=== PATIENT | male | born 1975 | race Caucasian/White ===

== ENCOUNTER 2019-06-11 19:17 | Inpatient (IN) | payer BC ==
[2019-06-11] MEDS ORDERED: Morphine 10 MG/ML VIAL (1 ml) IV ONE (19:29)
--- NOTE | 2019-06-11 19:38 | ED ---
Abdominal Pain/Male - HPI Summary HPI Summary: Patient is a 44 y/o M presenting to the ED via EMS for a chief complaint of diffuse abdominal pain. Patient is a transfer from [facility] for a peritoneal abscess. At [facility], the patient had an abdomen CT that showed diverticulitis with a peritoneal abscess. On triage, patient rates the abdominal pain as 10/10 in severity. Per EMS, patient was given morphine and 100 mcg of fentanyl. PSHx of abdominal surgery is denied. He does note a colonoscopy screening in the past for a PMHx of colitis and diverticulitis. On 06/09/19, patient was given ciprofloxacin for the abscess without relief of his abdominal pain. Patient denies fever or headache. He denies any aggravating factors. Patient does report positive sick contact with stomach bugs. - History of Current Complaint Chief Complaint: EDAbdPain Stated Complaint: ABSCESS/DIVTIC PER EMS Time Seen by Provider: 06/11/19 19:24 Hx Obtained From: Patient, EMS Onset/Duration: Sudden Onset, Still Present Timing: Constant Severity Initially: Severe Severity Currently: Severe Pain Intensity: 10 Pain Scale Used: 0-10 Numeric Location: Diffuse Radiates: No Aggravating Factor(s): Nothing Alleviating Factor(s): Nothing, Other: - No relief with ciprofloxacin Associated Signs And Symptoms: Positive: Other - Negative headache. Negative: Fever - Allergies/Home Medications Allergies/Adverse Reactions: Allergies Allergy/AdvReac Type Severity Reaction Status Date / Time erythromycin base Allergy GI Upset Verified 06/02/19 10:25 ivabradine Allergy Dry Eyes Verified 06/02/19 10:25 Tetracyclines Allergy GI Upset Verified 06/02/19 10:25 contrast dye Allergy Severe HOT/RED Uncoded 12/05/18 12:40 AND ITCHING PMH/Surg Hx/FS Hx/Imm Hx Previously Healthy: Yes Endocrine/Hematology History: Denies: Hx Diabetes Cardiovascular History: Reports: Hx Hypertension - MEDICATED Denies: Hx Pacemaker/ICD Respiratory History: Reports: Hx Seasonal Allergies GI History: Reports: Hx Diverticulosis, Other GI Disorders - Colitis History: Denies: Hx Renal Disease Musculoskeletal History: Reports: Hx Back Problems, Hx Orthopedic Injury - R. knee & L.shoulder, Other Musculoskeletal History - Fx L5-S1 Sensory History: Denies: Hx Legally Blind, Hx Deafness, Hx Hearing Aid Opthamlomology History: Denies: Hx Legally Blind EENT History: Denies: Hx Deafness Neurological History: Reports: Hx Headaches, Hx Migraine, Other Neuro Impairments/Disorders - PAIN CLINIC PT Psychiatric History: Reports: Hx Anxiety Denies: Hx Panic Disorder - Surgical History Surgical History: Yes Surgery Procedure, Year, and Place: R. knee surgery and follow-up I&D at [facility] 2003. Lt shoulder Hx Anesthesia Reactions: No Infectious Disease History: No Infectious Disease History: Denies: Traveled Outside the [place] in Last 30 Days - Social History Occupation: Employed Full-time Lives: With Family Alcohol Use: Occasionally Alcohol Amount: 2 Hx Substance Use: No Substance Use Type: Reports: None Hx Tobacco Use: Yes Smoking Status (MU): Former Smoker Type: Smokeless Tobacco Amount Used/How Often: 1 can a day Length of Time of Smoking/Using Tobacco: 15 Review of Systems Negative: Fever Positive: Abdominal Pain - Diffuse Negative: Headache All Other Systems Reviewed And Are Negative: Yes Physical Exam - Summary Physical Exam Summary: Appearance: Well-appearing, Well-nourished, lying in bed comfortably Skin: Warm, dry, no obvious rash Eyes: sclera anicteric, no conjunctival pallor ENT: mucous membranes moist, pharynx appears normal Neck: Supple, nontender Respiratory: Clear to auscultation, no signs of respiratory distress Cardiovascular: Normal S1, S2. No murmurs. Normal distal pulses in tibial and radial bilaterally. Abdomen: Soft, normal active bowel sounds present. Diffuse severe abdominal tenderness. Musculoskeletal: Normal, Strength/ROM Intact Neurological: A&Ox3, awake and alert, mentation is normal, speech is fluent and appropriate Psychiatric: affect is normal, does not appear anxious or depressed Triage Information Reviewed: Yes Vital Signs On Initial Exam: Initial Vitals Temp Pulse Resp BP Pulse Ox 100.5 F 86 22 154/99 98 06/11/19 19:25 06/11/19 19:25 06/11/19 19:25 06/11/19 19:25 06/11/19 19:25 Vital Signs Reviewed: Yes Procedures - Sedation Patient Received Moderate/Deep Sedation with Procedure: No Diagnostics - Vital Signs Vital Signs Temp Pulse Resp BP Pulse Ox 06/11/19 19:25 100.5 F 86 22 154/99 98 - Laboratory Result Diagrams: 06/12/19 04:39 06/12/19 04:39 Lab Statement: Any lab studies that have been ordered have been reviewed, and results considered in the medical decision making process. Abdominal Pain Male Course/Dx - Course Course Of Treatment: Patient is a 44 y/o M presenting to the ED via EMS for a chief complaint of diffuse abdominal pain. Patient is a transfer from [facility] for a peritoneal abscess. At [facility], the patient had an abdomen CT that showed diverticulitis with a peritoneal abscess. On triage, patient rates the abdominal pain as 10/10 in severity. Per EMS, patient was given morphine and 100 mcg of fentanyl. PSHx of abdominal surgery is denied. He does note a colonoscopy screening in the past for a PMHx of colitis and diverticulitis. On 06/09/19, patient was given ciprofloxacin for the abscess without relief of his abdominal pain. Patient denies fever or headache. He denies any aggravating factors. Patient does report positive sick contact with stomach bugs.. On exam, diffuse severe abdominal tenderness. In the ED course, patient was given morphine 10 mg IV. At 20:34, Dr. Temo Preston recommends admission to [facility]. At 21:39, Dr. Alvarado agrees to admit the patient to [facility]. Patient will be admitted to [facility] with a diagnosis of diverticulitis. - Diagnoses Provider Diagnoses: Diverticulitis - Provider Notifications Discussed Care Of Patient With: Temo Preston - At 20:34, Dr. Temo Preston recommends admission to [facility]. At 21:39, Dr. Alvarado agrees to admit the patient to [facility]. Time Discussed With Above Provider: 20:34 Instructed by Provider To: Admit As Inpatient Discharge ED - Sign-Out/Discharge Documenting (check all that apply): Patient Departure - Admit - Discharge Plan Condition: Stable Disposition: ADMITTED TO [facility] - Billing Disposition and Condition Condition: STABLE Disposition: Admitted to [facility] - Attestation Statements Document Initiated by Deidre: Yes Documenting Anibalibe: Alba Elizabeth Provider For Whom Deidre is Documenting (Include Credential): Winston Thayer MD Scribe Attestation: Alba Allen scribed for Winston Thayer MD on 06/12/19 at 0615. Scribe Documentation Reviewed: Yes Provider Attestation: The documentation as recorded by the Alba goode accurately reflects the service I personally performed and the decisions made by me, Winston Thayer MD Status of Deidre Document: Viewed
--- OUTSIDE RECORDS SUMMARY | 2019-06-11 20:02 | XMS REPORT | Continuity of Care Document ---
:1975 External Reference #:[id number] Author Name Yuliana Mcneill MD (transmitted by agent of provider Rubi Houser ) Address [address] [place] [address] Care Team Providers Name Role Phone Ross Valente MD - Family Medicine Care Team Information Activity Assistant [phone] Problems Active Problems Provider Date Sciatica Yuliana Mcneill MD Onset: 10/12/2017 Spondylolisthesis L5/S1 level Yuliana Mcneill MD Onset: 04/30/2018 Social History Type Date Description Comments Sex Unknown ETOH Use Occasionally consumes alcohol Tobacco Use Start: Unknown Chews tobacco Recreational Drug Use Denies Drug Use Tobacco Use Start: Unknown Patient has never smoked Smoking Status Reviewed: 05/21/19 Patient has never smoked Exercise Type/Frequency Exercises regularly Allergies, Adverse Reactions, Alerts Active Allergies Reaction Severity Comments Date Erythromycin GI Upset 09/21/2017 Iodinated Diagnostic Agents Rash 09/21/2017 IV Dye 10/12/2017 Medications Active Medications SIG Qnty Indications Ordering Date Provider Atenolol 1 by mouth Unknown 50mg Tablets every day Cyclobenzaprine HCL 1 tablet by Unknown 10mg mouth q8 hours Tablets as needed muscle spasms Xanax 1/2 to 1 tab as Unknown 0.5mg Tablets needed for severe anxiety attack Oxycodone HCL take one tablet Unknown 15mg Tablets by mouth every 4 hours as needed maximum daily dose = four tablets Lyrica 1 by mouth 60caps Ross Valetne MD 50mg Capsules twice a day Naproxen 1 tablet with Unknown 500mg Tablets food by mouth twice a day as needed Immunizations CPT Code Status Date Vaccine Lot # [id number] Given 01/06/1998 DT Vaccine Younger Than 7 Yrs Vital Signs Date Vital Result Comment 05/21/2019 2:09pm Height 71 inches 5'11" Weight 217.00 lb Heart Rate 86 /min BP Systolic 176 mmHg BP Diastolic 90 mmHg BMI (Body Mass Index) 30.3 kg/m2 05/14/2019 10:37am Heart Rate 84 /min Respiratory Rate 16 /min Body Temperature 98.3 F Results Test Acquired Date Facility Test Result H/L Range Note Surgical 04/30/2019 [facility] Surgical SEE RESULT [address] [address] [phone] PDFReport [id number] <SEE NOTE> Laboratory test 04/14/2019 [facility] Surgical SEE RESULT [address] [place] [address] [phone] 1 SEE RESULT BELOW Name: KAYLENEBRODY : [address]: Pramod Rizo MD Acct: [id number] Unit: [id number] AGE: 44 Location: [facility] Re04/30/19 SEX: M Status: REG REF SPEC: [id number] MARITZA: 04/30/[address] [facility] [address]: Pramod Rizo MD REQ: [id number] RECD: 04/30/19 STATUS: SOUT _ ORDERED: LEVEL 3/2 COMMENTS: [id number] FINAL DIAGNOSIS 1. Soft tissue, medial upper abdomen, excision: -- Lobulated adipose tissue compatible with lipoma. 2. Soft tissue mass, left upper abdomen, excision: -- Lobulated adipose tissue compatible with lipoma. CLINICAL HISTORY No history given GROSS DESCRIPTION 1. The specimen is received in formalin labeled, Medial Upper Abdominal Mass, and consists of a 2.2 x 1.9 x 0.9 cm yellow ovoid smooth to nodular well encapsulated adipose tissue fragment. The cut surface is glistening arreola-yellow and lobulated. The specimen is inked, serially sectioned and apprenticeship representative sections are submitted in one cassette. 2. The specimen is received in formalin labeled, Left Upper Abdominal Mass , and consists of a 2.8 by up to 2.2 x 0.7 cm irregular smooth well encapsulated adipose tissue fragment. The cut surface is glistening yellow-pink. The specimen is inked, serially sectioned and apprenticeship representative sections are submitted in one cassette. Signed by and Reported on: Jhonny Robertson MD 1428 END OF REPORT DEPARTMENT OF PATHOLOGY, [address] [place] [address] Jhonny Robertson M.D. Director [facility] # [id number] 2 SEE RESULT BELOW Name: BRODY MAURICE : [address]: Pramod Rizo MD Acct: [id number] Unit: [id number] AGE: 44 Location: [facility] Re04/14/19 SEX: M Status: REG REF SPEC: [id number] MARITZA: 04/14/[address] [facility] [address]: Pramod Rizo MD REQ: [id number] RECD: 04/14/19 STATUS: SOUT _ ORDERED: LEVEL 3/2 COMMENTS: [id number] FINAL DIAGNOSIS 1. Left arm, excision: -- Angiolipoma. 2. Right side, excision: -- Angiolipoma. CLINICAL HISTORY No history given GROSS DESCRIPTION 1. The specimen is received in formalin labeled, Left Arm Mass, and consists of a 2.1 x 1.8 x 0.6 cm yellow-brown ovoid slightly lobulated well encapsulated adipose tissue fragment. The cut surface is arreola-yellow and lobulated. The specimen is inked, serially sectioned and apprenticeship representative sections are submitted in one cassette. 2. The specimen is received in formalin labeled, Right Side Mass, and consists of a 2.3 x 1.2 x 0.8 cm yellow ovoid focally lobulated well encapsulated adipose tissue fragment. The cut surface is arreola-yellow and lobulated. The specimen is inked, serially sectioned and apprenticeship representative sections are submitted in one cassette. Signed by and Reported on: Marina Santos MD 04/16/19 1352 END OF REPORT DEPARTMENT OF PATHOLOGY, [address] [place] [address] Jhonny Robertson M.D. Director [facility] # [id number] Procedures Date Code Description Status 04/30/2019 31059 Excision Tumor, Soft Tissue, Abdominal Wall, Subcutaneous, Completed < 3 CM 04/30/2019 05877 Excision Tumor, Soft Tissue, Abdominal Wall, Subcutaneous, Completed < 3 CM 04/14/2019 29046 Excision Tumor Soft Tissue Forearm/Wrist Subcutaneous < 3 Completed CM 04/14/2019 49602 excision, soft tissue of back, or flank Completed Medical Devices Description No Information Available Encounters Type Date Location Provider Dx Diagnosis Office Visit [facility] Pr[facility]od [facility]izo, D17.1 Benign lipomatous 1:00p Of Arron HOLLIS, FACS neoplasm of skin, subcu of trunk D17.22 Benign lipomatous neoplasm of skin, subcu of left arm K57.92 Dvtrcli of intest, part unsp, w/o perf or abscess w/o bleed Assessments Date Code Description Provider 05/21/2019 M43.17 Spondylolisthesis, lumbosacral region Yuliana Mcneill MD 05/21/2019 M51.17 Intervertebral disc disorders with Yuliana Mcneill MD radiculopathy, lumbosacral region 05/14/2019 D17.1 Benign lipomatous neoplasm of skin and MICHELLE Cerrato subcutaneous tissue of trunk 04/30/2019 D17.1 Benign lipomatous neoplasm of skin and Pramod Rizo MD, FACS subcutaneous tissue of trunk 04/14/2019 D17.1 Benign lipomatous neoplasm of skin and Pramod Rizo MD, FACS subcutaneous tissue of trunk 04/14/2019 D17.22 Benign lipomatous neoplasm of skin and Pramod Rizo MD, FACS subcutaneous tissue of left arm 03/28/2019 D17.1 Benign lipomatous neoplasm of skin and Pramod Rizo MD, FACS subcutaneous tissue of trunk 03/28/2019 D17.22 Benign lipomatous neoplasm of skin and Pramod Rizo MD, FACS subcutaneous tissue of left arm 03/28/2019 K57.92 Diverticulitis of intestine, part Pramod Rizo MD, FACS unspecified, without perforation or abscess without bleeding Plan of Treatment 05/14/2019 - Brad Alexandre, PAD17.1 Benign lipomatous neoplasm of skin and subcutaneous tissue of trunkFollow up:As needed Functional Status Description No Information Available Mental Status Description No Information Available Referrals Description No Information Available
--- OUTSIDE RECORDS SUMMARY | 2019-06-11 20:02 | XMS REPORT | Continuity of Care Document ---
:1975 External Reference #:[id number] Author Name Pramod Rizo MD, FACS (transmitted by agent of provider Tori Hall) Address [address] [place] [address] Care Team Providers Name Role Phone Ross Valente MD - Family Medicine Care Team Information Head Of Precision Targeting [phone] Problems Active Problems Provider Date Sciatica Yuliana Mcneill MD Onset: 10/12/2017 Spondylolisthesis L5/S1 level Yuliana Mcneill MD Onset: 04/30/2018 Social History Type Date Description Comments Sex Unknown ETOH Use Occasionally consumes alcohol Tobacco Use Start: Unknown Chews tobacco Recreational Drug Use Denies Drug Use Tobacco Use Start: Unknown Patient has never smoked Smoking Status Reviewed: 04/14/19 Patient has never smoked Exercise Type/Frequency Exercises [...] tablets Lyrica 1 by mouth 60caps Ross Valente MD 50mg Capsules twice a day Naproxen 1 tablet with Unknown 500mg Tablets food by mouth twice a day as needed Immunizations CPT Code Status Date Vaccine Lot # [id number] Given 01/06/1998 DT Vaccine Younger Than 7 Yrs Vital Signs Date Vital Result Comment 04/14/2019 9:48am Heart Rate 80 /min BP Systolic 152 mmHg BP Diastolic 90 mmHg Respiratory Rate 16 /min Body Temperature 98.5 F 03/28/2019 1:06pm Height 71 inches 5'11" Weight 198.00 lb Heart Rate 90 /min BP Systolic Sitting 140 mmHg BP Diastolic Sitting 92 mmHg Respiratory Rate 16 /min Body Temperature 101.0 F BMI (Body Mass Index) 27.6 kg/m2 Results Description No Information Available Procedures Description No Information Available Medical Devices Description No Information Available Encounters Type Date Location Provider Dx Diagnosis Office Visit 03/[facility]2019 [facility] Pram[facility], D17.1 Benign lipomatous 1:00p Of [facility] , FACS neoplasm of skin, subcu of trunk D17.22 Benign lipomatous neoplasm of skin, subcu of left arm K57.92 Dvtrcli of intest, part unsp, w/o perf or abscess w/o bleed Assessments Date Code Description Provider 04/14/2019 D17.1 Benign lipomatous neoplasm of skin [...] or abscess without bleeding Plan of Treatment Future Appointment(s):04/28/2019 10:00 am - Pramod Rizo MD, FACS at [facility]04/14/2019 - Pramod Rizo MD, FACSD17.1 Benign lipomatous neoplasm of skin and subcutaneous tissue of trunkFollow up:2 bskjtX36.22 Benign lipomatous neoplasm of skin and subcutaneous tissue of left arm Functional Status Description No Information Available Mental Status Description No Information Available Referrals Description No Information Available
--- OUTSIDE RECORDS SUMMARY | 2019-06-11 20:02 | XMS REPORT | Continuity of Care Document ---
:1975 External Reference #:[id number] Author Name Cody Villatoro MD Address [address] [place] [address] Care Team Providers Name Role Phone Fracisco Araiza - Urology Care Team Information Table Assembler [phone] Ross Valente - Family Medicine Care Team Information Table Assembler Problems Active Problems Provider Date Arthralgia of the lower leg Ross Valente M.D. Onset: 01/17/2007 Anxiety state Ross Valente M.D. Onset: 01/17/2007 Diverticulitis Ross Valente M.D. Onset: 03/11/2019 Lumbar radiculopathy Ross Valente M.D. Onset: 09/13/2018 Low back pain Ross Valente M.D. Onset: 09/13/2018 Pain in calf Ross Valente M.D. Onset: 05/04/2017 Sciatica Ross Valente M.D. Onset: 04/10/2017 Liver function tests abnormal Ross Valente M.D. Onset: 12/12/2011 Acute pharyngitis Ross Valente M.D. Onset: 07/24/2011 Acute sinusitis Ross Valente M.D. Onset: 07/24/2011 Hyperlipidemia Ross Valente M.D. Onset: 02/23/2011 Benign essential hypertension Ross Valente M.D. Onset: 02/23/2011 Social History Type Date Description Comments Sex Unknown Tobacco Use Start: Unknown Occ Chews Tobacco Tobacco Use Start: Unknown Nonsmoker Smoking Status Reviewed: 08/28/17 Nonsmoker ETOH Use Rare Tobacco Use Start: Unknown Patient has never smoked Allergies, Adverse Reactions, Alerts Active Allergies Reaction Severity Comments Date Erythromycin 05/10/2006 IV Contrast Urticaria 02/14/2007 Tetracycline 03/06/2019 Cipro rash 03/06/2019 Medications Active Medications SIG Qnty Indications Ordering Provider Date Doxycycline Hyclate two by mouth one 2caps S30.861A Cody TMynor 05/08/2019 time for tick MD [place] 100mg Capsules bite. Oxycodone HCL ER 1 by mouth every 60tabs M54.5 Ross Valente, 09/13/2018 20mg 12 hours for M.D. Tab ER 12H Abuse-Det pain as needed Lyrica 1 three times a 90caps M54.32 Ross Valente, 04/11/2018 100mg Capsules day as needed M.D. for sciatic pain Naproxen take one tablet 60tabs L03.113 Gill Wiley, [facility] 11/28/2017 500mg Tablets by mouth every 12 hours with food Atenolol take 1/2 tablet 15tabs I10 Ross Valente, 08/03/2017 50mg Tablets by mouth once M.D. daily Xanax 1/2 -1 by mouth 60tabs Ross Valente, 02/03/2013 0.5mg Tablets twice a day as M.D. needed for anxiety Oxycodone HCL 1-2 by mouth 120tabs Ross Valente, 12/12/2011 15mg twice a day as M.D. Tablets needed History Medications Amoxicillin/Clavulanate 1 twice a day 20tabs Ross Valente, 03/06/2019 - Potassium w/ food. M.D. 05/08/2019 875-125mg Tablets Medications Administered in Office Medication SIG Qnty Indications Ordering Provider Date Injection Subcutaneous Or Ross Valente M.D. 02/14/2007 Intramuscular Injection Injection Subcutaneous Or Ross Valente M.D. 10/11/2006 Intramuscular Injection Immunizations CPT Code Status Date Vaccine Lot # [id number] Given 04/17/2019 Influenza Vac, Quadriv[place], [place] [id number] Given 04/10/2017 Tdap Tetanus, W Pertussis [id number] Given 04/10/2017 Influenza Vac, Quadrivalent, Slit Virus, Im [id number] Given 07/11/2016 Influenza Vac, Quadrivalent, Slit Virus, Im [id number] Given 04/13/2015 Influenza Vac, [place], [place] [id number] Given 05/01/2014 DO Not Use Split Influenza Virus Vaccine Vital Signs Date Vital Result Comment 05/08/2019 11:02am BP Systolic 110 mmHg BP Diastolic 70 mmHg Heart Rate 66 /min Body Temperature 97.7 F Respiratory Rate 17 /min Weight 200.00 lb 03/11/2019 5:14pm BP Systolic 120 mmHg BP Diastolic 80 mmHg Heart Rate 64 /min Body Temperature 98.4 F Respiratory Rate 16 /min Weight 205.00 lb Results Description No Information Available Procedures Date Code Description Status 12/24/2014 37175505 Colonoscopy Completed Medical Devices Description No Information Available Encounters Type Date Location Provider Dx Diagnosis Office Visit 03/11/2019 Main Office Ross Valente, Ashly7.92 Dvtrcli of intest, 5:00p M.D. part unsp, w/o perf or abscess w/o bleed M54.5 Low back pain Office Visit 12/10/2018 11:00a Main Office Ross Valente M.D. M54.5 Low back pain M54.16 Radiculopathy, lumbar region M25.561 Pain in right knee F41.1 Generalized anxiety disorder Assessments Date Code Description Provider 05/08/2019 S30.861A Insect bite (nonvenomous) of abdominal Cody MD kary Snyder, initial encounter 03/11/2019 K57.92 Diverticulitis Ross Valente M.D. 03/11/2019 M54.5 Low back pain Ross Valente M.D. 12/10/2018 M54.5 Low back pain Ross Valente M.D. 12/10/2018 M54.16 Radiculopathy, lumbar region Ross Valente M.D. 12/10/2018 M25.561 Pain in right knee Ross Valente M.D. 12/10/2018 F41.1 Generalized anxiety disorder Ross Valente M.D. Plan of Treatment Future Appointment(s):06/13/2019 10:20 am - Ross Valente M.D. at Main [facility]405/08/2019 - Cody Villatoro, MDS30.861A Insect bite (nonvenomous) of abdominal wall, initial encounterNew Medication:Doxycycline Hyclate 100 mg - two by mouth one time for tick bite.AllComments:Medication Management Patient Understands medications he's taking? Yes No Are there Barriersto Adherence? Yes No Has the patient been asked about herbal supplements and therapies, and OTC meds? Yes No Functional Status Description No Information Available Mental Status Description No Information Available Referrals Refer to Reason for Referral Status Appt Date Pramod Rizo MD LIPOMA'S ON ARM AND ABDOMEN jw Scheduled 03/28/2019 [address] [place] [address] [place] [address] [phone]
--- OUTSIDE RECORDS SUMMARY | 2019-06-11 20:02 | XMS REPORT | Continuity of Care Document ---
:1975 External Reference #:[id number] Author Name MICHELLE Cerrato (transmitted by agent of provider Marleen Narvaez) Address [address] [place] [address] [place] [address] Care Team Providers Name Role Phone Ross Valente MD - Family Medicine Care Team Information Title Checker Problems Active Problems Provider Date Sciatica Yuliana Mcneill MD Onset: 10/12/2017 Spondylolisthesis L5/S1 level Yuliana Mcneill MD Onset: 04/30/2018 Social History Type Date Description Comments Sex Unknown ETOH Use Occasionally consumes alcohol Tobacco Use Start: Unknown Chews tobacco Recreational Drug Use Denies Drug Use Tobacco Use Start: Unknown Patient has never smoked Smoking Status Reviewed: 05/14/19 Patient has never smoked Exercise Type/Frequency Exercises [...] CPT Code Status Date Vaccine Lot # [id number] Given 01/06/1998 DT Vaccine Younger Than 7 Yrs Vital Signs Date Vital Result Comment 05/14/2019 10:37am Heart Rate 84 /min Respiratory Rate 16 /min Body Temperature 98.3 F 04/30/2019 9:01am Heart Rate 120 /min BP Systolic Sitting 140 mmHg BP Diastolic Sitting 82 mmHg Respiratory Rate 18 /min Body Temperature 99.2 F Results Test Acquired Date Facility Test Result H/L Range Note Surgical 04/30/2019 [facility] Surgical SEE RESULT [address] [place] [address] [phone] PDFReport [id number] <SEE NOTE> Laboratory test 04/14/2019 [facility] Surgical SEE RESULT [address] [address] [phone] 1 SEE RESULT BELOW Name: BRODY MAURICE : [address]: Pramod Rizo MD Acct: [id number] Unit: [id number] AGE: 44 Location: [facility] Re04/30/19 SEX: M Status: REG REF SPEC: [id number] MARITZA: 04/30/19 [facility] DR: Pramod Rizo MD REQ: [id number] RECD: 04/30/19 STATUS: SOUT _ ORDERED: LEVEL 3/2 COMMENTS: [id number] FINAL DIAGNOSIS 1. Soft tissue, medial upper [...] The specimen is inked, serially sectioned and agricultural sales representative sections are submitted in one cassette. 2. The specimen is received in formalin labeled, Left Upper Abdominal Mass , and consists of a 2.8 by up to 2.2 x 0.7 cm irregular smooth well encapsulated adipose tissue fragment. The cut surface is glistening yellow-pink. The specimen is inked, serially sectioned and agricultural sales representative sections are submitted in one cassette. Signed by and Reported on: Jhonny Robertson MD [address] END OF REPORT DEPARTMENT OF PATHOLOGY, [address] [place] [address] Jhonny Robertson M.D. Director [facility] # [id number] 2 SEE RESULT BELOW Name: BRODY MAURICE : [address]: Pramod Rizo MD Acct: [id number] Unit: [id number] AGE: 44 Location: [facility] Re04/14/19 SEX: M Status: REG REF SPEC: [id number] MARITZA: 04/14/195 [facility] DR: Pramod Rizo MD REQ: [id number] RECD: 04/14/19 STATUS: SOUT _ ORDERED: LEVEL 3/2 COMMENTS: [id number] FINAL DIAGNOSIS 1. Left arm, excision: -- [...] The specimen is inked, serially sectioned and agricultural sales representative sections are submitted in one cassette. 2. The specimen is received in formalin labeled, Right Side Mass, and consists of a 2.3 x 1.2 x 0.8 cm yellow ovoid focally lobulated well encapsulated adipose tissue fragment. The cut surface is arreola-yellow and lobulated. The specimen is inked, serially sectioned and agricultural sales representative sections are submitted in one cassette. Signed by and Reported on: Marina Santos MD 04/16/19 1352 END OF REPORT DEPARTMENT OF PATHOLOGY, [address] [place] [address] Jhonny Robertson M.D. Director [facility] # [id number] Procedures Date Code Description Status 04/30/2019 15710 Excision Tumor, Soft Tissue, Abdominal Wall, Subcutaneous, Completed < 3 CM 04/30/2019 41479 Excision Tumor, Soft Tissue, Abdominal Wall, Subcutaneous, Completed < 3 CM 04/14/2019 59832 Excision Tumor Soft Tissue Forearm/Wrist Subcutaneous < 3 Completed CM 04/14/2019 94283 excision, soft tissue of back, or flank Completed Medical Devices Description No Information Available Encounters Type Date Location Provider Dx Diagnosis Office Visit [facility] Pramod [facility]izo, D17.1 Benign lipomatous 1:00p Of [facility] , FACS neoplasm of skin, subcu of trunk D17.22 Benign lipomatous neoplasm of skin, subcu of left arm K57.92 Dvtrcli of intest, part unsp, w/o perf or abscess w/o bleed Assessments Date Code Description Provider 05/14/2019 D17.1 Benign lipomatous neoplasm of skin [...] abscess without bleeding Plan of Treatment Future Appointment(s):05/21/2019 1:30 pm - Yuliana Mcneill MD at [facility]05/14/2019 - Brad Alexandre, PAD17.1 Benign lipomatous neoplasm of skin and subcutaneous tissue of trunkFollow up:As needed Functional Status Description No Information Available Mental Status Description No Information Available Referrals Description No Information Available
[2019-06-11] MEDS: Morphine 10 MG/ML VIAL (1 ml) IV SCH ×3 (20:09→23:15)
--- NOTE | 2019-06-11 21:34 | CONS ---
CC: [facility] CONSULTATION REPORT: DATE OF CONSULT: 06/11/19 REFERRING PROVIDER: Dr. Winston Thayer from the emergency room here at [facility]. CHIEF COMPLAINT: Lower abdominal pain. HISTORY OF PRESENT ILLNESS: Mr. Brody Ewing is a 44-year-old gentleman with a known history of sigmoid diverticular disease with several admissions to the hospital over the past 4 years for treatment of sigmoid diverticulitis requiring IV antibiotics. He states on Sunday of this week, he was in [place], developed lower abdominal discomfort. He drove home yesterday. His pain was progressively worsening and he presented to the emergency room at [facility]. There, he was noted to be febrile and he had an elevated white blood cell count of 12,000. He underwent a CT scan of the abdomen and pelvis without oral or IV contrast, which showed findings consistent with acute sigmoid diverticulitis. There was concern for a possible small 2.5 cm abscess. There was no apparent extraluminal air or free fluid. He was transferred to the emergency room here at [facility] for further care and management. He has not been having any diarrheal bowel movements. He has some difficulty in urinating, was causing of pain. He said he has had very poor oral intake over the past 24 hours. He underwent a colonoscopy in 2014 at [facility], which showed descending and sigmoid colon diverticular disease. PAST MEDICAL HISTORY: 1. Sigmoid diverticular disease/diverticulitis as per above. 2. Chronic low back and neck pain. 3. Anxiety. 4. Hypertension. PAST SURGICAL HISTORY: Knee surgery bilaterally. MEDICATIONS: Medicines include: 1. Lyrica. 2. Oxycodone. 3. Gabapentin. 4. Cyclobenzaprine. 5. Atenolol. 6. Alprazolam. ALLERGIES: ERYTHROMYCIN, TETRACYCLINE, CONTRAST DYE, IVABRADINE. SOCIAL HISTORY: He does not use tobacco or alcohol. He works as a financial sales associate. REVIEW OF SYSTEMS: Otherwise as per above. He has had no blood per rectum or melena. He has had no bowel movements since Sunday. PHYSICAL EXAM: Temperature 100.5, pulse 86, blood pressure 154/99. Generally, he is a slender male, appears to be in no apparent distress, he is awake, alert , conversive. His oral mucosa is quite dry. Sclerae anicteric. His lungs are clear to auscultation without rhonchi or wheezing. Abdomen is soft and somewhat firm. He has diminished bowel sounds throughout. He has lower abdominal pain tenderness with some voluntary guarding with no peritoneal irritation or generalized peritonitis. Extremities showed no cyanosis or edema. Psychiatric: He is awake, alert, and oriented x3. He has normal judgment and insight. LABORATORY DATA: Laboratory values at [facility] revealed normal electrolytes, BUN, and creatinine. His total bilirubin is 1.8. The transaminases are unremarkable. White blood cell count of 12.25 with a hemoglobin of 17. IMPRESSION: Acute sigmoid diverticulitis. CT review without IV or oral contrast shows sigmoid inflammation with diverticular disease. Radiologists at [facility] was concerned for a 2.5 cm abscess, but I am not certain that I visualized this, but there is significant inflammatory process surrounding the sigmoid colon, but there is no clear evidence of extraluminal air or free fluid. The study was otherwise unremarkable. PLAN: 1. The plan is for the patient to be admitted to the hospitalist service and treated with IV antibiotics. 2. He will be kept n.p.o. 3. IV fluids will be administered. 4. We will follow him closely with you. At this point, I do not believe that there is any drainable abscess, but depending on his clinical course over the next several days, he may require a followup or repeat CT scan to document improvement or rule out abscess. All of the above was discussed with the patient. [id number]/[facility] #: [id number] SHELBY
[2019-06-11] MEDS ORDERED: HYDROmorphone INJ* 0.5 MG/0.5 ML SYRINGE IV SLOW PU PRN (22:01)
[2019-06-11] MEDS ORDERED: Senna TAB 8.6 mg* TAB PO PRN (22:04)
[2019-06-11] MEDS ORDERED: Ondansetron INJ* 2 MG/ML VIAL IV PRN (22:04)
[2019-06-11] MEDS ORDERED: Al Hydrox/Mg Hydrox/Simet LIQ* 30 ML UDC PO PRN (22:04)
[2019-06-11] MEDS ORDERED: Pregabalin 50 mg CAP (*) PO PRN (22:07)
[2019-06-11] MEDS ORDERED: Cyclobenzaprine TAB* 10 MG PO PRN (22:07)
[2019-06-11] MEDS ORDERED: ALPRAZolam TAB* 0.5 MG PO PRN (22:07)
[2019-06-11] MEDS: HYDROmorphone INJ* 0.5 MG/0.5 ML SYRINGE IV SLOW PU PRN (22:13)
[2019-06-11] MEDS ORDERED: NS 0.9% 1000 ML** 1,000 ML IV ONE (22:23)
[2019-06-11] MEDS ORDERED: Zosyn per Pharmacy* NOTE FOLLOW UP SCH (23:00)
[2019-06-12] MEDS: Morphine INJ* 2 MG/ML 1 ML SYRINGE (TWO MG - NEW SYRINGE VERSION) IV PRN ×3 (00:14→10:24)
--- NOTE | 2019-06-12 00:15 | HP ---
CC: Dr. Valente * HISTORY AND PHYSICAL: DATE OF ADMISSION: 06/11/19 ATTENDING PHYSICIAN WHILE IN THE HOSPITAL: Dr. Michele Alvarado * (dictated by MICHELLE Lees). PRIMARY CARE PROVIDER: Dr. Valente. CHIEF COMPLAINT: Right lower quadrant pain and fever. HISTORY OF PRESENT ILLNESS: Brody Ewing is a 44-year-old white male with past medical history significant for diverticulosis and prior history of diverticulitis, hypertension, chronic knee pain, chronic back pain and osteoarthritis, who presented to [facility] due to worsening abdominal pain and symptomatic fever and chills. The patient had a CT, which demonstrated a fluid collection and the patient was then transferred to [facility] for further evaluation. The patient told me he has been having abdominal pain since 06/09/19 in the morning that started in the upper abdomen, then progressed down into the right lower quadrant and since then has not had any upper abdominal pain. It has been getting progressively worsens in to today and he has had low energy since then. He has had intermittent symptomatic fever and chills on and off since that time. He had measured his temperature yesterday and it was approximately 98 degrees Fahrenheit. He denies nausea or vomiting. He has not had a bowel movement for 4 days. He denies difficulty breathing, dizziness, lightheadedness, chest pain. The patient denies dysuria and difficulty urinating. The patient reports feeling bloated as well. The patient received 4 mg of morphine twice IV as well as 1 g of ertapenem and 100 mcg of fentanyl in the [facility]. Since arriving to [facility], he has received morphine 10 mg and the patient has had very little pain relief with any of these. The hospitalists were then asked to evaluate the patient for admission. PAST MEDICAL HISTORY: 1. History of diverticulosis. 2. History of previous diverticulitis, most recently in February. 3. Hypertension. 4. Osteoarthritis. 5. Chronic pain of right knee and back. PAST SURGICAL HISTORY: 1. Multiple right knee surgeries including meniscus repair x2. 2. Lipoma removal x4. HOME MEDICATIONS: 1. Lyrica 50 mg p.o. b.i.d. p.r.n. pain. 2. Oxycodone 15 mg p.o. q.6 hours p.r.n. moderate pain. 3. Naproxen 500 mg p.o. b.i.d. p.r.n. moderate pain. 4. Gabapentin 300 mg p.o. at bedtime. 5. Flexeril 100 mg p.o. t.i.d. p.r.n. muscle spasms. 6. Atenolol 50 mg p.o. daily. 7. Xanax 0.5 mg p.o. at bedtime p.r.n. insomnia. ALLERGIES: The patient has GI upset to ERYTHROMYCIN, dry eyes to IVABRADINE, GI upset to TETRACYCLINES and feeling hot, red and itching to CONTRAST. FAMILY HISTORY: Father of unclear cause and he had a history of diverticulitis. Mother is living and has history of COPD. SOCIAL HISTORY: The patient works in sales. He is and has 3 kids. He chews tobacco and previously smoked tobacco for 4 years total. He denies alcohol use and illicit drug use. The patient has a healthcare proxy and his is his healthcare proxy should he need one, her name is Nahed Ewing. Her phone number is [phone]. REVIEW OF SYSTEMS: An 11-point review of systems was completed and all pertinent positives and negatives are above in the HPI; other systems are negative. PHYSICAL EXAMINATION GENERAL: Well-developed, well-nourished 44-year-old middle-aged white male, lying in hospital bed, appearing in moderate distress. Face appears flushed. VITAL SIGNS: Temperature 100.5 degrees Fahrenheit, pulse 86, respiratory rate 22, oxygen saturation 98%, blood pressure 154/99. These are vital signs from the [facility]. HEENT: Eyes: PERRL. Sclerae anicteric. ENT: Mucous membranes are moist. LUNGS: Clear to auscultation throughout. CARDIO: Regular rate and rhythm without murmurs, rubs, or gallops. ABDOMEN: Normoactive bowel sounds x4 quadrants. Abdomen is tender to palpation in the bilateral lower quadrants. Abdomen is overall soft, though the patient does have guarding at times and abdomen is nondistended. No hepatosplenomegaly appreciated. EXTREMITIES: No clubbing, cyanosis, or edema. NEUROLOGIC: The patient is alert and oriented x3. No focal deficits. Able to move all 4 extremities. SKIN: Warm, dry, and intact. DIAGNOSTIC STUDIES/LAB DATA: CT abdomen and pelvis, impression: 1. Persistent versus recurrent sigmoid diverticulitis with new 2.5-cm abscess adjacent to the sigmoid colon and abutting the bladder dome with probable reactive thickening of the bladder dome wall. 2. No air within the bladder to suggest presence of anterior vesical fistula at this time. No free air or fluid in the pelvis. Pertinent lab data: Urine is with +2 blood, trace urine ketones, otherwise unremarkable. White blood cell 12.25, hemoglobin 17.1, hematocrit 49.6, platelet count 231. Sodium 136, potassium 4.2, chloride 100, carbon dioxide 31 , anion gap 5, BUN 13, creatinine 1.1, glucose 112, calcium 9.5. Total bili 1.8 , AST 14, ALT 31, alk phos 67. ASSESSMENT AND PLAN: Brody Ewing is a 44-year-old white male with past medical history significant for hypertension, diverticulosis, history of diverticulitis and chronic pain, who presents for right lower quadrant pain and fever and chills. The patient will be admitted inpatient for: 1. Diverticulitis, sepsis secondary to diverticulitis. The patient meets sepsis criteria with leukocytosis and fever, and we do know the source to be confirmed by diverticulitis. There is a fluid collection, which has been reviewed by Dr. Preston in consultation, who believes this to be a phlegmon and does not agree with association to the bladder. He is recommending medical management at this time. I will make the patient n.p.o. except for sips of water with meds and we can reevaluate this in the morning. The patient received ertapenem at [facility] and I will start Zosyn for tomorrow morning. I will start him on saline, but I will give a normal saline 1 L bolus prior to starting continuous fluids. The patient has a difficult to manage pain. I have ordered p.r.n. morphine as well as p.r.n. Dilaudid for breakthrough if the morphine does not help. If this does not improve his pain control, then perhaps pain specialist consultation may be of benefit. 2. Hypertension. Continue the patient's home atenolol and we will continue to monitor this. He has been minimally hypertensive in the emergency department, however, this has resolved. 3. Chronic pain. I will continue the patient's home medications of Flexeril, gabapentin, naproxen, oral oxycodone, and Lyrica. 4. FEN. NPO except for sips with medications. Electrolytes within normal limits as described above. 5. Code status. The patient is full code. 6. DVT prophylaxis. The patient has a DVT risk score of 1. I will order SCDs and the patient is to ambulate. TIME SPENT: Approximately 45 minutes was spent on this admission, approximately half this time was spent at bedside evaluating the patient and discussing the plan of care. This case has been reviewed with my attending , Dr. Michele Alvarado, and he agrees with this plan of care. MICHELLE LEES [id number]/[facility] #: [id number] MTDD
[2019-06-12] MEDS: oxyCODONE TAB* 5 MG TAB PO PRN ×4 (01:35→21:58)
[2019-06-12] MEDS: HYDROmorphone INJ* 0.5 MG/0.5 ML SYRINGE IV SLOW PU PRN (02:57)
[2019-06-12] MEDS: NS 0.9% 1000 ML** 1,000 ML IV SCH (04:48)
[2019-06-12 05:16] LABS: ABS Basophils 0.1 10^3/ul (0-0.2); ABS Eosinophils 0.1 10^3/ul (0-0.6); ABS Lymphocytes 1.2 10^3/ul (1.0-4.8); ABS Monocytes 1.1 10^3/ul (0-0.8); ABS Neutrophils 11.3 10^3/ul (1.5-7.7); Eosinophil % 0.6 %; Hematocrit 48 % (42-52); Hemoglobin 16.3 g/dL (14.0-18.0); Mean Corpuscular HGB Conc 34 g/dL (31-36); Mean Corpuscular Hemoglobin 28 pg (27-31); Mean Corpuscular Volume 81 fL (80-94); Mean Platelet Volume 7.9 fL (7.4-10.4); Nucleated Red Blood Cells % 0.3; Platelet Count 207 10^3/uL (150-450); Red Blood Count 5.86 10^6 /uL (4.18-5.48); Red Cell Distribution Width 16 % (10-15); White Blood Count 13.8 10^3/uL (3.5-10.8)
[2019-06-12 05:32] LABS: Albumin 4.1 g/dL (3.2-5.2); Albumin/Globulin Ratio 1.4 (1-3); BUN/Creatinine Ratio 11.8 (8-20); Calcium 9.5 mg/dL (8.6-10.3); EGFR African American 106.3 (>60); EGFR Non-African American 87.9 (>60); Potassium 4.7 mmol/L (3.5-5.0); Total Bilirubin 2.1 mg/dL (0.2-1.0); Total Protein 7.1 g/dL (6.4-8.9)
[2019-06-12] MEDS: HYDROmorphone INJ1* 1 MG/ML SYRINGE IV SLOW PU PRN ×3 (08:02→20:43)
[2019-06-12] MEDS: Atenolol TAB* 50 MG PO SCH (08:03)
[2019-06-12] MEDS ORDERED: Piperacillin/Tazobac ADVAN(*) 3.375 GM in NS 0.9% 100 ML* 100 ML IVPB ONE (09:00)
--- NOTE | 2019-06-12 12:07 | PN ---
Subjective Date of Service: 06/12/19 Interval History: Pt is feeling poorly still. He continues to have severe abdominal pain. He does state his pain is better now than on admission. He doesn't know when he last past flatus or had a BM. Objective Active Medications: Acetaminophen (Tylenol Tab*) 650 mg PO Q6H PRN PRN Reason: MILD PAIN or TEMP > 100.4 Al Hydrox/Mg Hydrox/Simethicone (Maalox Plus*) 30 ml PO Q6H PRN PRN Reason: INDIGESTION Alprazolam (Xanax Tab*) 0.5 mg PO BEDTIME PRN PRN Reason: INSOMNIA Atenolol (Tenormin Tab*) 50 mg PO DAILY [facility] Last Admin: 06/12/19 08:03 Dose: 50 mg Cyclobenzaprine HCl (Flexeril Tab*) 10 mg PO TID PRN PRN Reason: SPASMS Gabapentin (Neurontin Cap(*)) 300 mg PO BEDTIME BUDDY Hydromorphone HCl (Dilaudid Inj1s*) 1 mg IV SLOW PU Q4H PRN PRN Reason: pain - breakthrough Last Admin: 06/12/19 08:02 Dose: 1 mg Sodium Chloride (Ns 0.9% 1000 Ml) 1,000 mls @ 100 mls/hr IV PER RATE [facility] Last Admin: 06/12/19 04:48 Dose: 100 mls/hr Piperacillin Sod/Tazobactam (Sod 3.375 gm/ Sodium Chloride) 100 mls @ 25 mls/ hr IVPB Q8H [facility] Morphine Sulfate (Morphine Inj (Syringe))*) 2 mg IV Q4H PRN PRN Reason: PAIN - SEVERE Last Admin: 06/12/19 10:24 Dose: 2 mg Ondansetron HCl (Zofran Inj*) 4 mg IV Q4H PRN PRN Reason: NAUSEA/VOMITING Oxycodone HCl (Roxycodone Tab*) 15 mg PO Q6H PRN PRN Reason: PAIN - MODERATE Last Admin: 06/12/19 07:44 Dose: 15 mg Pharmacy Consult (Zosyn Per Pharmacy*) 1 note FOLLOW UP .ZOSYN PER PHARMACY [facility] Pregabalin (Lyrica Cap(*)) 50 mg PO BID PRN PRN Reason: PAIN Senna (Senokot 8.6 Mg Tab*) 1 tab PO BID PRN PRN Reason: CONSTIPATION Vital Signs - 8 hr 06/12/19 06/12/19 06/12/19 04:48 05:56 07:15 Temperature 98.4 F Pulse Rate 71 Respiratory 18 18 16 Rate Blood Pressure 126/79 (mmHg) O2 Sat by Pulse 98 Oximetry 06/12/19 06/12/19 06/12/19 07:44 08:02 10:24 Temperature Pulse Rate Respiratory 18 18 18 Rate Blood Pressure (mmHg) O2 Sat by Pulse Oximetry 06/12/19 06/12/19 10:30 10:31 Temperature Pulse Rate Respiratory 18 18 Rate Blood Pressure (mmHg) O2 Sat by Pulse Oximetry Oxygen Devices in Use Now: None Appearance: Middle aged male sitting up in bed, NAD Eyes: No Scleral Icterus Ears/Nose/Mouth/Throat: Mucous Membranes Moist Respiratory: Symmetrical Chest Expansion and Respiratory Effort, Clear to Auscultation Cardiovascular: NL Sounds; No Murmurs; No JVD, RRR, No Edema Abdominal: - - BS+ soft, diffusely tender to minimal palpation Extremities: No Clubbing, Cyanosis Skin: No Nodules or Sclerosis Neurological: Alert and Oriented x 3 Result Diagrams: 06/12/19 04:39 06/12/19 04:39 Assess/Plan/Problems-Billing Mr Ewing is a 44 yo M who has a h/o diverticulitis in the past who presented to the ER at [facility] with c/o abdominal pain and was found to have diverticulitis with possible associated abscess vs phlegmon. - Patient Problems (1) Diverticulitis Current Visit: Yes Status: Acute Code(s): K57.92 - DVTRCLI OF INTEST, PART UNSP, W/O PERF OR ABSCESS W/O BLEED SNOMED Code(s): 283190943 Comment: Pt again has diverticulitis (last seen on CT 02/2019). This time possibly complicated by abscess vs large phlegmon. Will ask for formal surgery consultation. Continue zosyn and pain control. May need resection given likely recurrent divertliculitis. (2) HTN (hypertension) Current Visit: Yes Status: Chronic Code(s): I10 - ESSENTIAL (PRIMARY) HYPERTENSION SNOMED Code(s): 73299908 Comment: Continue atenolol. (3) DVT prophylaxis Current Visit: Yes Status: Acute Priority: High Onset Date: 07/22/14 Code(s): CNK6279 - SNOMED Code(s): 371078951 Comment: ambulation (4) Full code status Current Visit: Yes Status: Acute Code(s): Z78.9 - OTHER SPECIFIED HEALTH STATUS SNOMED Code(s): 141601717 (5) Tobacco abuse Current Visit: No Status: Chronic Priority: Low Code(s): Z72.0 - TOBACCO USE SNOMED Code(s): 746097627
[2019-06-12] MEDS: Morphine INJ* 4 MG/ML 1 ML SYRINGE (NEW SYRINGE VERSION) IV PRN ×3 (13:50→23:21)
[2019-06-12] MEDS: ZOSYN 3.375 GM Q8H per EXTENDED INFUSION IVPB SCH ×4 (16:20→21:59)
--- NOTE | 2019-06-12 17:25 | PN ---
Progress Note - Progress Note Date of Service: 06/12/19 SOAP: Subjective:pain less than on admission but still very uncomfortable;passing scant flatus;last stool on Sunday06/08/19;no nausea,rosibel clears [] Objective: Vital Signs Temp 99 F 06/12/19 15:15 Pulse 63 06/12/19 15:15 Resp 18 06/12/19 16:31 BP 119/70 06/12/19 15:15 Pulse Ox 97 06/12/19 15:15 Intake & Output 06/11/19 06/12/19 06/12/19 18:59 06:59 18:59 Intake Total 0 525 Output Total 0 325 Balance 0 200 Weight 189 lb 14.4 oz Intake: IV Fluids 416 NS (0.9%) 416 IVPB 109 NS (0.9%) 109 Oral 0 0 Output: Urine 0 325 abd:+bs,nondistended,very tender to light palpation,+guarding R>L lower quadrants [] Assessment:sigmoid diverticulitis,?abscess [] Plan:continue IV antibiotics,clears,pain management,CBC 06/13/19 []
[2019-06-12] MEDS: Gabapentin CAP(*) 300 MG PO SCH (20:43)
[2019-06-13] MEDS: HYDROmorphone INJ1* 1 MG/ML SYRINGE IV SLOW PU PRN ×5 (00:48→22:26)
[2019-06-13] MEDS: NS 0.9% 1000 ML** 1,000 ML IV SCH ×3 (04:01→23:16)
[2019-06-13] MEDS: oxyCODONE TAB* 5 MG TAB PO PRN ×4 (04:01→23:15)
[2019-06-13 05:10] LABS: ABS Eosinophils 0.2 10^3/ul (0-0.6); ABS Lymphocytes 1.6 10^3/ul (1.0-4.8); ABS Monocytes 0.8 10^3/ul (0-0.8); ABS Nucleated RBC 0.1 10^3/ul; Eosinophil % 1.9 %; Hematocrit 47 % (42-52); Hemoglobin 15.9 g/dL (14.0-18.0); Lymphocyte % 16.8 %; Mean Corpuscular HGB Conc 34 g/dL (31-36); Mean Corpuscular Hemoglobin 28 pg (27-31); Mean Corpuscular Volume 81 fL (80-94); Mean Platelet Volume 7.8 fL (7.4-10.4); Nucleated Red Blood Cells % 0.7; Platelet Count 217 10^3/uL (150-450); Red Blood Count 5.76 10^6 /uL (4.18-5.48); Red Cell Distribution Width 16 % (10-15); White Blood Count 9.7 10^3/uL (3.5-10.8)
[2019-06-13] MEDS: ZOSYN 3.375 GM Q8H per EXTENDED INFUSION IVPB SCH ×6 (05:45→22:27)
[2019-06-13] MEDS: Atenolol TAB* 50 MG PO SCH (08:13)
[2019-06-13] MEDS: Morphine INJ* 4 MG/ML 1 ML SYRINGE (NEW SYRINGE VERSION) IV PRN ×3 (11:43→20:50)
--- NOTE | 2019-06-13 14:56 | PN ---
Subjective Date of Service: 06/13/19 Interval History: Pt is still feeling poorly but generally better than on admission. He has been trying to not use pain medication because he wants to leave but I have explained that he is not going home today and should not be in pain. He is very anxious to leave as he has a dog that needs to be put down soon. He has not had a BM. He states his worst pain is when he urinates, he develops severe abdominal pain. Objective Active Medications: Acetaminophen (Tylenol Tab*) 650 mg PO Q6H PRN PRN Reason: MILD PAIN or TEMP > 100.4 Al Hydrox/Mg Hydrox/Simethicone (Maalox Plus*) 30 ml PO Q6H PRN PRN Reason: INDIGESTION Alprazolam (Xanax Tab*) 0.5 mg PO BEDTIME PRN PRN Reason: INSOMNIA Atenolol (Tenormin Tab*) 50 mg PO DAILY [facility] Last Admin: 06/13/19 08:13 Dose: 50 mg Cyclobenzaprine HCl (Flexeril Tab*) 10 mg PO TID PRN PRN Reason: SPASMS Gabapentin (Neurontin Cap(*)) 300 mg PO BEDTIME [facility] Last Admin: 06/12/19 20:43 Dose: 300 mg Hydromorphone HCl (Dilaudid Inj1s*) 1 mg IV SLOW PU Q4H PRN PRN Reason: pain - breakthrough Last Admin: 06/13/19 14:02 Dose: 1 mg Sodium Chloride (Ns 0.9% 1000 Ml) 1,000 mls @ 100 mls/hr IV PER RATE [facility] Last Admin: 06/13/19 14:10 Dose: 100 mls/hr Piperacillin Sod/Tazobactam (Sod 3.375 gm/ Sodium Chloride) 100 mls @ 25 mls/ hr IVPB Q8H [facility] Last Admin: 06/13/19 14:10 Dose: 25 mls/hr Morphine Sulfate (Morphine Inj (Syringe)*) 4 mg IV Q4H PRN PRN Reason: PAIN - SEVERE Last Admin: 06/13/19 11:43 Dose: 4 mg Ondansetron HCl (Zofran Inj*) 4 mg IV Q4H PRN PRN Reason: NAUSEA/VOMITING Oxycodone HCl (Roxycodone Tab*) 15 mg PO Q6H PRN PRN Reason: PAIN - MODERATE Last Admin: 06/13/19 11:04 Dose: 15 mg Pharmacy Consult (Zosyn Per Pharmacy*) 1 note FOLLOW UP .ZOSYN PER PHARMACY [facility] Pregabalin (Lyrica Cap(*)) 50 mg PO BID PRN PRN Reason: PAIN Senna (Senokot 8.6 Mg Tab*) 1 tab PO BID PRN PRN Reason: CONSTIPATION Vital Signs - 8 hr 06/13/19 06/13/19 06/13/19 07:15 07:16 11:04 Temperature 99.0 F Pulse Rate 63 Respiratory 18 20 18 Rate Blood Pressure 139/80 (mmHg) O2 Sat by Pulse 96 Oximetry 06/13/19 06/13/19 06/13/19 11:15 11:43 12:44 Temperature 97.9 F Pulse Rate 74 Respiratory 20 18 18 Rate Blood Pressure 148/104 (mmHg) O2 Sat by Pulse 97 Oximetry 06/13/19 06/13/19 12:45 14:02 Temperature Pulse Rate Respiratory 18 14 Rate Blood Pressure (mmHg) O2 Sat by Pulse Oximetry Oxygen Devices in Use Now: None Appearance: Middle aged male sitting up in bed, NAD Eyes: No Scleral Icterus Ears/Nose/Mouth/Throat: Mucous Membranes Moist Respiratory: Symmetrical Chest Expansion and Respiratory Effort, Clear to Auscultation Cardiovascular: NL Sounds; No Murmurs; No JVD, RRR, No Edema Abdominal: - - BS+soft, ND, moderately tender to palpation in the RUQ Lymphatic: No Auricular Adenopathy Skin: No Nodules or Sclerosis Neurological: Alert and Oriented x 3 Result Diagrams: 06/13/19 04:14 06/12/19 04:39 Assess/Plan/Problems-Billing Mr Ewing is a 44 yo M who has a h/o diverticulitis in the past who presented to the ER at [place] with c/o abdominal pain and was found to have diverticulitis with possible associated abscess vs phlegmon. - Patient Problems (1) Diverticulitis Current Visit: Yes Status: Acute Code(s): K57.92 - DVTRCLI OF INTEST, PART UNSP, W/O PERF OR ABSCESS W/O BLEED SNOMED Code(s): 077777481 Comment: Pt again has diverticulitis-he states he has had 5 episodes. This time possibly complicated by abscess vs large phlegmon. Continue zosyn (WBC count normalized) and pain control. May need resection given likely recurrent divertliculitis. Await further recommendations from general surgery. (2) HTN (hypertension) Current Visit: Yes Status: Chronic Code(s): I10 - ESSENTIAL (PRIMARY) HYPERTENSION SNOMED Code(s): 50836725 Comment: Continue atenolol- BP generally controlled.. (3) DVT prophylaxis Current Visit: Yes Status: Acute Priority: High Onset Date: 07/22/14 Code(s): PHD5654 - SNOMED Code(s): 393666440 Comment: ambulation (4) Full code status Current Visit: Yes Status: Acute Code(s): Z78.9 - OTHER SPECIFIED HEALTH STATUS SNOMED Code(s): 482837971 (5) Tobacco abuse Current Visit: No Status: Chronic Priority: Low Code(s): Z72.0 - TOBACCO USE SNOMED Code(s): 181189162
[2019-06-13 15:41] LABS: C Reactive Protein 219.12 mg/L (<8.01)
[2019-06-13 15:46] LABS: Urine Appearance Clear; Urine Bilirubin Negative (Negative); Urine Blood Negative (Negative); Urine Color Yellow; Urine Glucose Negative (Negative); Urine Ketones Negative (Negative); Urine Nitrite Negative (Negative); Urine Protein Negative (Negative); Urine Specific Gravity 1.015 (1.010-1.030); Urine Urobilinogen Negative (Negative)
--- NOTE | 2019-06-13 15:59 | PN ---
Progress Note - Progress Note Date of Service: 06/13/19 SOAP: Subjective: Feels a little better Minimal pain at rest, pain on urinating and coughing Tolerating some clear liquids One episode of flatus last night, no BM Objective: Temp Pulse Resp BP Pulse Ox 98.6 F 65 18 135/77 100 06/13/19 15:30 06/13/19 15:30 06/13/19 15:30 06/13/19 15:30 06/13/19 15:30 PEX: Comfortable Abd is soft and slightly distended. Bowel sounds are present. Lower abdominal pain with some guarding, no peritoneal irritation or upper abdominal pain Laboratory Results - last 24 hr 06/12/19 06/13/19 06/13/19 04:39 04:14 15:16 WBC 9.7 RBC 5.76 H Hgb 15.9 Hct 47 MCV 81 MCH 28 MCHC 34 RDW 16 H Plt Count 217 MPV 7.8 Neut % (Auto) 72.4 Lymph % (Auto) 16.8 [place] % (Auto) 8.5 Eos % (Auto) 1.9 Baso % (Auto) 0.4 Absolute Neuts (auto) 7.0 Absolute Lymphs (auto) 1.6 Absolute Monos (auto) 0.8 Absolute Eos (auto) 0.2 Absolute Basos (auto) 0.0 Absolute Nucleated RBC 0.1 Nucleated RBC % 0.7 Sodium 137 Potassium 4.7 Chloride 99 L Carbon Dioxide 29 Anion Gap 9 BUN 11 Creatinine 0.93 Est GFR ( Amer) 106.3 Est GFR (Non-Af Amer) 87.9 BUN/Creatinine Ratio 11.8 Glucose 90 Calcium 9.5 Total Bilirubin 2.10 H AST 10 L ALT 16 Alkaline Phosphatase 56 C-Reactive Protein 219.12 H Total Protein 7.1 Albumin 4.1 Globulin 3.0 Albumin/Globulin Ratio 1.4 Urine Color Yellow Urine Appearance Clear Urine pH 7.0 Ur Specific [place] 1.015 Urine Protein Negative Urine Ketones Negative Urine Blood Negative Urine Nitrate Negative Urine Bilirubin Negative Urine Urobilinogen Negative Ur Leukocyte Esterase Negative Urine Glucose Negative Assessment: Sigmoid diverticulitis-recurrent Normal WBC, no fever or tachycardia U/A normal today Plan: Continue with IV abx with transition to oral antibiotics on discharge hopefully next 24-48 hours No indication to repeat CT scan at present as clinically appears better Plan repeat CT with both oral and IV contrast (CT done at [facility] with un-enhanced with ?? small abscess) to evaluate for abscess only if worsens or no improvement. He is probably candidate for elective sigmoid colectomy given multiple episodes of diverticulitis (colonoscopy 2014) and young age and should be followed up with surgery. All discussed with patient RODNEYMA covering me until 06/16
[2019-06-13] MEDS: Gabapentin CAP(*) 300 MG PO SCH (20:49)
[2019-06-14] MEDS: Acetaminophen TAB* 325 MG PO PRN (00:43)
[2019-06-14] MEDS: ZOSYN 3.375 GM Q8H per EXTENDED INFUSION IVPB SCH ×6 (07:27→21:55)
[2019-06-14] MEDS: oxyCODONE TAB* 5 MG TAB PO PRN ×3 (07:44→19:50)
[2019-06-14] MEDS: Atenolol TAB* 50 MG PO SCH (07:44)
[2019-06-14] MEDS: NS 0.9% 1000 ML** 1,000 ML IV SCH ×2 (07:45→18:40)
--- NOTE | 2019-06-14 09:23 | PN ---
Progress Note - Progress Note Date of Service: 06/14/19 SOAP: Subjective: Pt seen and examined. Pt wants to go home. RLQ pain. pos flatus, tolerating clears Objective: Temp Pulse Resp BP Pulse Ox 97.7 F 55 18 175/93 99 06/14/19 07:48 06/14/19 07:48 06/14/19 07:48 06/14/19 07:48 06/14/19 07:48 Intake & Output 06/13/19 06/14/19 06/14/19 22:59 06:59 14:59 Intake Total 960 1100 Output Total 1850 Balance 960 -750 abdo: soft/ ND/ tender at lower abdo w/o rebound ext wnl Assessment: diverticular abscess- improving on abx Plan: non operative management f/u as outpt for possible sigmoid colectomy abx- per nosp; I recommend cipro and flagyl for 14 days. Pt 's diet can be advanced to fulls. If he understands risks of requiring readamission, he can possibly go home today to attend to important family needs
[2019-06-14] MEDS: Morphine INJ* 4 MG/ML 1 ML SYRINGE (NEW SYRINGE VERSION) IV PRN ×2 (15:43→20:13)
[2019-06-14] MEDS: Nicotine PATCH 21 MG/24 HR* PATCH TRANSDERM SCH (15:44)
--- NOTE | 2019-06-14 16:12 | PN ---
Subjective Date of Service: 06/14/19 Interval History: Patient continues to report RLQ abd pain, increased tenderness with palpation. Continues to c/o abd pain with urination. Denies fever or chills. denies chest pain or shortness of breath. Family History: Unchanged from Admission Social History: Unchanged from Admission Past Medical History: Unchanged from Admission Objective Active Medications: Acetaminophen (Tylenol Tab*) 650 mg PO Q6H PRN PRN Reason: MILD PAIN or TEMP > 100.4 Last Admin: 06/14/19 00:43 Dose: 650 mg Al Hydrox/Mg Hydrox/Simethicone (Maalox Plus*) 30 ml PO Q6H PRN PRN Reason: INDIGESTION Alprazolam (Xanax Tab*) 0.5 mg PO BEDTIME PRN PRN Reason: INSOMNIA Atenolol (Tenormin Tab*) 50 mg PO DAILY [facility] Last Admin: 06/14/19 07:44 Dose: 50 mg Cyclobenzaprine HCl (Flexeril Tab*) 10 mg PO TID PRN PRN Reason: SPASMS Gabapentin (Neurontin Cap(*)) 300 mg PO BEDTIME [facility] Last Admin: 06/13/19 20:49 Dose: 300 mg Hydromorphone HCl (Dilaudid Inj1s*) 1 mg IV SLOW PU Q4H PRN PRN Reason: pain - breakthrough Last Admin: 06/13/19 22:26 Dose: 1 mg Sodium Chloride (Ns 0.9% 1000 Ml) 1,000 mls @ 100 mls/hr IV PER RATE [facility] Last Admin: 06/14/19 07:45 Dose: 100 mls/hr Piperacillin Sod/Tazobactam (Sod 3.375 gm/ Sodium Chloride) 100 mls @ 25 mls/ hr IVPB Q8H [facility] Last Admin: 06/14/19 13:54 Dose: 25 mls/hr Morphine Sulfate (Morphine Inj (Syringe)*) 4 mg IV Q4H PRN PRN Reason: PAIN - SEVERE Last Admin: 06/14/19 15:43 Dose: 4 mg Nicotine (Nicotine Patch 21 Mg/24 Hr*) 1 patch TRANSDERM DAILY [facility] Last Admin: 06/14/19 15:44 Dose: 1 patch Ondansetron HCl (Zofran Inj*) 4 mg IV Q4H PRN PRN Reason: NAUSEA/VOMITING Oxycodone HCl (Roxycodone Tab*) 15 mg PO Q6H PRN PRN Reason: PAIN - MODERATE Last Admin: 06/14/19 13:54 Dose: 15 mg Pharmacy Consult (Zosyn Per Pharmacy*) 1 note FOLLOW UP .ZOSYN PER PHARMACY [facility] Pharmacy Profile Note (Nicotine Patch Removal Note*) 1 note PATCH OFF 2100 [facility] Pregabalin (Lyrica Cap(*)) 50 mg PO BID PRN PRN Reason: PAIN Senna (Senokot 8.6 Mg Tab*) 1 tab PO BID PRN PRN Reason: CONSTIPATION Vital Signs - 8 hr 06/14/19 06/14/19 06/14/19 10:01 11:49 13:54 Temperature 98.2 F Pulse Rate 57 Respiratory 18 16 16 Rate Blood Pressure 134/88 (mmHg) O2 Sat by Pulse 97 Oximetry 06/14/19 15:43 Temperature Pulse Rate Respiratory 16 Rate Blood Pressure (mmHg) O2 Sat by Pulse Oximetry Oxygen Devices in Use Now: None Appearance: appears comfortable resting in bed , no acute distress Eyes: No Scleral Icterus Ears/Nose/Mouth/Throat: Clear Oropharnyx, Mucous Membranes Moist Neck: NL Appearance and Movements; NL JVP, Trachea Midline Respiratory: Symmetrical Chest Expansion and Respiratory Effort, Clear to Auscultation Cardiovascular: NL Sounds; No Murmurs; No JVD, No Edema Abdominal: - - tenderness with palpation to RLQ, suprapubic Extremities: No Edema, No Clubbing, Cyanosis Skin: No Rash or Ulcers Neurological: Alert and Oriented x 3 Nutrition: Taking PO's Result Diagrams: 06/15/19 05:28 06/15/19 05:28 Assess/Plan/Problems-Billing Mr Ewing is a 44 yo M who has a h/o diverticulitis in the past who presented to the ER at [place] with c/o abdominal pain and was found to have diverticulitis with possible associated abscess vs phlegmon. - Patient Problems (1) Diverticulitis Current Visit: Yes Status: Acute Code(s): K57.92 - DVTRCLI OF INTEST, PART UNSP, W/O PERF OR ABSCESS W/O BLEED SNOMED Code(s): 859434886 Comment: Pt again has diverticulitis-he states he has had 5 episodes. This time possibly complicated by abscess vs large phlegmon. Continue zosyn (WBC count normalized) and pain control. recommendations from general surgery- continue with antibiotics - no surgery at this time. will monitor for acute change (2) HTN (hypertension) Current Visit: Yes Status: Chronic Code(s): I10 - ESSENTIAL (PRIMARY) HYPERTENSION SNOMED Code(s): 93580067 Comment: Continue atenolol- BP generally controlled.. (3) Tobacco abuse Current Visit: No Status: Chronic Priority: Low Code(s): Z72.0 - TOBACCO USE SNOMED Code(s): 638818126 Comment: nicotine patch (4) DVT prophylaxis Current Visit: Yes Status: Acute Priority: High Onset Date: 07/22/14 Code(s): ILK5777 - SNOMED Code(s): 764268783 Comment: ambulation (5) Full code status Current Visit: Yes Status: Acute Code(s): Z78.9 - OTHER SPECIFIED HEALTH STATUS SNOMED Code(s): 041583023 Status and Disposition: inpatient
[2019-06-14] MEDS: Gabapentin CAP(*) 300 MG PO SCH (20:14)
[2019-06-14] MEDS ORDERED: Nicotine Patch Removal NOTE PATCH OFF SCH (21:00)
[2019-06-14] MEDS ORDERED: NS 0.9% 100 ML* 100 ML ONE (22:03)
[2019-06-14] MEDS: HYDROmorphone INJ1* 1 MG/ML SYRINGE IV SLOW PU PRN (22:06)
[2019-06-15] MEDS: Morphine INJ* 4 MG/ML 1 ML SYRINGE (NEW SYRINGE VERSION) IV PRN (01:54)
[2019-06-15] MEDS: Acetaminophen TAB* 325 MG PO PRN (01:55)
[2019-06-15] MEDS: oxyCODONE TAB* 5 MG TAB PO PRN (02:04)
[2019-06-15] MEDS: ZOSYN 3.375 GM Q8H per EXTENDED INFUSION IVPB SCH ×2 (05:35)
[2019-06-15 05:49] LABS: ABS Eosinophils 0.3 10^3/ul (0-0.6); ABS Lymphocytes 2.2 10^3/ul (1.0-4.8); ABS Monocytes 0.5 10^3/ul (0-0.8); ABS Neutrophils 4.4 10^3/ul (1.5-7.7); Eosinophil % 4.4 %; Hematocrit 45 % (42-52); Hemoglobin 15.4 g/dL (14.0-18.0); Lymphocyte % 28.7 %; Mean Corpuscular HGB Conc 34 g/dL (31-36); Mean Corpuscular Hemoglobin 27 pg (27-31); Mean Corpuscular Volume 81 fL (80-94); Mean Platelet Volume 7.2 fL (7.4-10.4); Nucleated Red Blood Cells % 0.1; Platelet Count 219 10^3/uL (150-450); Red Blood Count 5.63 10^6 /uL (4.18-5.48); Red Cell Distribution Width 16 % (10-15); White Blood Count 7.5 10^3/uL (3.5-10.8)
[2019-06-15 06:05] LABS: BUN/Creatinine Ratio 8.6 (8-20); Calcium 9.1 mg/dL (8.6-10.3); EGFR African American 124.7 (>60); Potassium 3.7 mmol/L (3.5-5.0)
[2019-06-15] MEDS: Nicotine PATCH 21 MG/24 HR* PATCH TRANSDERM SCH (09:10)
[2019-06-15] MEDS: Atenolol TAB* 50 MG PO SCH (09:10)
--- NOTE | 2019-06-15 10:54 | PN ---
Progress Note - Progress Note Date of Service: 06/15/19 SOAP: Subjective: Pt feeling better than yesterday. no BM, pos flatus, no nausea, tolerated liquids Objective: Temp Pulse Resp BP Pulse Ox 97.6 F 71 16 118/77 98 06/15/19 07:07 06/15/19 07:07 06/15/19 07:58 06/15/19 07:07 06/15/19 07:07 abdo: firm/ ND/ NT Assessment: diverticular abscess- HD stable Plan: abx- convert to PO f/u in office Pt may benefit from out pt sigmoid colectomy
[2019-06-15 11:38] VITALS: BP 128/80
--- NOTE | 2019-06-15 19:27 | DS ---
DISCHARGE SUMMARY: DATE OF ADMISSION: 06/11/19 DATE OF DISCHARGE: 06/15/19 PROVIDER: Britney Meade NP PRIMARY CARE PROVIDER: Dr. Valente. CONSULTING SURGEON: Dr. Preston ATTENDING PHYSICIAN WHILE IN THE HOSPITAL: Shannan Palafox MD * (dictated by Britney Meade NP). PRIMARY DIAGNOSIS: Sepsis related to diverticulitis with possible abscess. SECONDARY DIAGNOSES: 1. Hypertension. 2. Osteoarthritis. 3. Chronic pain. STUDIES COMPLETED WHILE IN THE HOSPITAL: 1. The patient had an electrocardiogram, which showed sinus rhythm at a rate of 90. He had CT of the abdomen and pelvis at [facility] prior to transfer. Radiologist's impression: Persistent versus recurrent sigmoid diverticulitis with a new 2.5 cm abscess adjacent to sigmoid colon abutting to the bladder dome with probable reactive thickening of the bladder dome wall. 2. No air within the bladder to suggest presence of anterior fistula at this time. DISCHARGE MEDICATIONS: New home medications: 1. Ciprofloxacin 500 mg p.o. b.i.d. for 14 days. 2. Flagyl 500 mg p.o. every 8 hours for 14 days. 3. Colace 100 mg p.o. b.i.d. as needed for constipation. Continued Home Medications: 1. Lyrica 50 mg p.o. b.i.d. p.r.n. 2. Oxycodone 15 mg p.o. q.6 hours as needed. 3. Gabapentin 300 mg p.o. at bedtime. 4. Cyclobenzaprine 10 mg p.o. t.i.d. p.r.n. 5. Atenolol 50 mg p.o. daily. 6. Alprazolam 0.5 mg p.o. at bedtime. HISTORY OF PRESENT ILLNESS AND HOSPITAL COURSE: Mr. Ewing is a 44-year-old male with past medical history significant for chronic pain, hypertension, osteoarthritis, history of diverticulosis, and diverticulitis, most recently in February of this year who presented initially to [place] [facility] due to worsening abdominal pain with symptomatic fever and chills. He had a CT of the abdomen and pelvis in [place], which showed diverticulitis with concerning adjacent abscess and was transferred to [facility] for surgical evaluation and further treatment. The patient was seen by Dr. Preston and Dr. Buchanan from Surgery. His symptoms did improve throughout this hospitalization. The patient did receive IV Zosyn during this hospitalization for a total of 3 days. The patient was able to tolerate a full liquid diet without any vomiting or nausea. At this time, the patient is stable for discharge home. REVIEW OF SYSTEMS: The patient denies any fever or chills. Denies any chest pain or shortness of breath. He does complain of mild right lower quadrant abdominal pain, worse with palpation but does report significant improvement since admission. Denies any urinary frequency, urgency, or pain with urination. He did initially report pain with urination that has subsided. PHYSICAL EXAMINATION: General: At this time, Mr. Ewing is alert and oriented, resting on his hospital bed. He is in no acute distress. Vital Signs : Blood pressure 128/80, heart rate 54, respirations 16, O2 saturation 98%, temperature was 97.9. HEENT: Head is atraumatic, normocephalic. Eyes: EOMs are intact. Sclerae anicteric and not pale. Oral mucosa appears to be moist. Neck is supple. Lungs are clear to auscultation bilaterally. No wheezes, rales , or rhonchi. Cardiac: S1, S2. Regular rate and rhythm. No murmurs, rubs, or gallops. Abdomen is soft. He does have mild tenderness to the right lower quadrant with palpation. Bowel sounds are active x4. Extremities: He is able to move all 4 extremities. There is no clubbing or cyanosis. Skin is intact. At this time, Mr. Ewing is stable for discharge home. DISCHARGE PLAN: Mr. Ewing will be discharged home. He should rest. Activity as tolerated. 1. Sepsis with diverticulitis with possible adjacent abscess. The patient did meet sepsis criteria on admission with heart rate 93, WBC's 13.8 and source of diverticulitis. He was given IV fluids and antibiotic with resolution of tachycardia and leukocytosis. The patient did receive IV Zosyn during his hospitalization for a total of 3 days. He will be placed on ciprofloxacin 500 mg p.o. b.i.d. for 14 days, Flagyl 500 mg p.o. every 8 hours for 14 days. The patient and his are both instructed to return to the emergency room with any worsening pain, fever, chills, difficulty with urination, nausea, vomiting, or any other concerning abdominal symptoms, they both verbalized understanding. The patient was instructed to rest and could advance his diet as able. 2. Hypertension. He should continue on his home medications as previously prescribed. 3. Chronic pain. The patient can resume his pain medications as previously prescribed. 4. The patient should follow up with his primary care provider, Dr. Valente in 4 to 7 days. 5. He should follow up with Dr. Preston in 1 to 3 days. He should call the office on Sunday to schedule an appointment for this week. The patient has been advised of the need to call the office to schedule appointment. He should see Dr. Preston no later than of this week. Again, the patient was instructed to return to the emergency room for any change in his pain, worsening pain, pain with urination, fever, chills, nausea, vomiting, bloody diarrhea or any other concerning symptoms. The patient and his both verbalized understanding. I have discussed this with my attending, Dr. Shannan Palafox; she is in agreement with my plan. Condition on Discharge: Stable Disposition on Discharge: Home BRITNEY MEADE, OLIVIER [id number]/[facility] #: [id number] [place]
== END 2019-06-15 12:00 | disposition home or self-care (01) | DRG 720 ==
LOC: ED 19:17 → MEDTELE 22:04
PROVIDERS: ADMIT Internal Medicine; ATTEND Internal Medicine
DX: A41.9 Sepsis, unspecified organism (principal); K57.20 Diverticulitis of large intestine with perforation and abscess without bleeding; G89.29 Other chronic pain; M54.5 Low back pain; M54.2 Cervicalgia; F41.9 Anxiety disorder, unspecified; I10 Essential (primary) hypertension; J30.2 Other seasonal allergic rhinitis; G43.909 Migraine, unspecified, not intractable, without status migrainosus; M19.90 Unspecified osteoarthritis, unspecified site; M25.561 Pain in right knee; Z79.899 Other long term (current) drug therapy; Z72.0 Tobacco use; Z88.1 Allergy status to other antibiotic agents; Z88.8 Allergy status to other drugs, medicaments and biological substances; Z91.041 Radiographic dye allergy status
CPT/HCPCS: 36415; 80048; 80053; 81003; 83605; 85025; 86140; 93005; 96374; 99284; A9270-GY; J1170; J2270; J2543